=== PATIENT | female | born 1995 | race African-American/Black ===

== ENCOUNTER 2020-04-13 18:52 | Emergency (ER) | payer OTHER ==
[2020-04-13 19:18] LABS: BASOPHILS # (AUTO) 0.1 10^3/uL (0.0-0.1); BASOPHILS % (AUTO) 0.5 %; EOSINOPHILS # (AUTO) 0.5 10^3/uL (0.0-0.7); HCT - HEMATOCRIT 39.8 % (37.0-47.0); HGB - HEMOGLOBIN 12.6 g/dL (12.0-16.0); LYMPHOCYTES # (AUTO) 3.6 10^3/uL (1.5-3.5); LYMPHOCYTES % (AUTO) 38.1 %; MEAN CORPUSCULAR HGB CONC 31.7 g/dL (32.0-36.0); MEAN CORPUSCULAR VOLUME 85.4 fL (81.0-99.0); MEAN PLATELET VOLUME 9.7 fL (7.9-10.8); MONOCYTES # (AUTO) 0.6 10^3/uL (0.0-1.0); MONOCYTES % (AUTO) 6.7 %; NEUTROPHILS # (AUTO) 4.6 10^3/uL (1.5-6.6); NEUTROPHILS % (AUTO) 49.5 %; PLT - PLATELET COUNT 331 10^3/uL (130-450); RED BLOOD COUNT 4.66 10^6/uL (4.20-5.40); RED CELL DISTRIBUTION WIDTH 14.4 % (12.0-15.0); WHITE BLOOD COUNT 9.3 x10^3/uL (4.8-10.8)
[2020-04-13] MEDS ORDERED: HYDROcod/ACETAM 5/325 MG TABLET PO STA (19:24)
[2020-04-13] MEDS ORDERED: IBUPROFEN 800 MG TABLET PO STA (19:24)
--- NOTE | 2020-04-13 19:26 | ED Physician Documentation ---
PD HPI FEMALE - Stated complaint Stated Complaint: FEMALE - Chief complaint Chief Complaint: Abd Pain - History obtained from History obtained from: Patient - Additional information Additional information: She is on day 4 of her menses, the cramps and bleeding are heavier than normal. The start time was normal. She is in a monogamous relationship and does not use control. She doubts the possibility of given the normal timing of her menses. She feels a little dizzy today with the bleeding. Review of Systems Constitutional: reports: Reviewed and negative Nose: reports: Reviewed and negative Throat: reports: Reviewed and negative Cardiac: reports: Reviewed and negative PD PAST MEDICAL HISTORY - Present Medications Home Medications: Ambulatory Orders Medication Instructions Recorded Confirmed HYDROcod/ACETAM 5/325 [[place] 5/325] 1 - 2 tab PO Q6H PRN #7 tablet 04/13/20 Tranexamic Acid [Lysteda] 2 tab PO TID #20 tablet 04/13/20 - Allergies Allergies/Adverse Reactions: Allergies Allergy/AdvReac Type Severity Reaction Status Date / Time No Known Drug Allergies Allergy Verified 04/13/20 19:00 PD ED PE NORMAL - Vitals Vital signs reviewed: Yes - General General: Alert and oriented X 3, No acute distress - HEENT HEENT: PERRL, EOMI - Abdomen Abdomen: Non tender - Derm Derm: No rash - Neuro Neuro: Alert and oriented X 3, Normal speech Results - Vitals Vitals: Vital Signs - 24 hr 04/13/20 04/13/20 18:57 19:00 Temperature 36.0 C L 36.0 C L Heart Rate 73 73 Respiratory 15 15 Rate Blood Pressure 146/54 H 146/55 H O2 Saturation 100 100 Oxygen O2 Source Room air - Labs Labs: Laboratory Tests 04/13/20 04/13/20 04/13/20 19:06 19:08 19:08 WBC 9.3 RBC 4.66 Hgb 12.6 Hct 39.8 MCV 85.4 MCH 27.0 MCHC 31.7 L RDW 14.4 Plt Count 331 MPV 9.7 Neut # (Auto) 4.6 Lymph # (Auto) 3.6 H [place] # (Auto) 0.6 Eos # (Auto) 0.5 Baso # (Auto) 0.1 Absolute Nucleated RBC 0.00 Nucleated RBC % 0.0 Sodium 137 Potassium 4.0 Chloride 105 Carbon Dioxide 23 Anion Gap 9.0 BUN 12 Creatinine 0.8 Estimated GFR (MDRD) 87 L Glucose 99 Calcium 9.1 Total Bilirubin 0.7 AST 21 ALT 22 Alkaline Phosphatase 56 Total Protein 8.0 Albumin 4.2 Globulin 3.8 Albumin/Globulin Ratio 1.1 Lipase 22 Urine Color YELLOW Urine Clarity CLEAR Urine pH 8.0 H Ur Specific [place] 1.015 Urine Protein NEGATIVE Urine Glucose (UA) NEGATIVE Urine Ketones NEGATIVE Urine Occult Blood LARGE H Urine Nitrite NEGATIVE Urine Bilirubin NEGATIVE Urine Urobilinogen 0.2 (NORMAL) Ur Leukocyte Esterase NEGATIVE Ur Microscopic Review INDICATED Urine Culture Comments Not Reportable Urine HCG, Qual NEGATIVE PD MEDICAL DECISION MAKING - ED course ED course: We discussed potentially oral contraceptive pills to stanch the bleeding, she has intolerable side effects from those and declined. As such tranexamic acid 1 g orally was ordered. Notes that the way the string is built in [email or web address] I could only order it IV so told the nurse verbally to give it orally. There is no evidence of anemia or to necessitate further work-up tonight. Departure - Departure Disposition: 01 Home, Self Care Clinical Impression: Menorrhagia with regular cycle Condition: Good Record reviewed to determine appropriate education?: Yes Instructions: ED Bleeding Menstrual Heavy Prescriptions: Tranexamic Acid [Lysteda] 2 tab PO TID #20 tablet HYDROcod/ACETAM 5/325 [[place] 5/325] 1 - 2 tab PO Q6H PRN #7 tablet PRN Reason: Pain Comments: Call your doctor to arrange a follow-up appointment, make the next available appointment. In the interim, return anytime if worse or if new symptoms develop.
[2020-04-13 19:30] LABS: ALBUMIN 4.2 g/dL (3.2-5.5); ALBUMIN/GLOBULIN RATIO 1.1 (1.0-2.2); BILIRUBIN,TOTAL 0.7 mg/dL (0.2-1.0); CALCIUM 9.1 mg/dL (8.5-10.3); CREATININE 0.8 mg/dL (0.4-1.0)
[2020-04-13 19:41] LABS: BILIRUBIN,URINE NEGATIVE (NEGATIVE); GLUCOSE, URINE (UA) NEGATIVE (NEGATIVE); KETONES,URINE (UA) NEGATIVE (NEGATIVE); LEUKOCYTE ESTERASE, URINE NEGATIVE (NEGATIVE); NITRITE,URINE NEGATIVE (NEGATIVE); OCCULT BLOOD,URINE LARGE (NEGATIVE); PROTEIN,URINE NEGATIVE (NEGATIVE); UROBILINOGEN,URINE 0.2 (NORMAL) E.U./dL (NORMAL)
[2020-04-13 19:45] LABS: CLARITY,URINE CLEAR (CLEAR)
[2020-04-13 19:46] LABS: HCG UR QUAL NEGATIVE
[2020-04-13] MEDS ORDERED: TRANEXAMIC ACID 1,000 MG/10 ML VIAL IV STA (19:47)
[2020-04-13] MEDS ORDERED: HYDROcod/ACET 5/325 Prepack 4 PO STA (19:48)
[2020-04-13 19:54] LABS: BACTERIA,URINE Rare /HPF (None Seen); SQUAMOUS EPITHELIAL CELL,UR RARE Squamous (<= Few); WBC,URINE 0-3 /HPF (0-5)
[2020-04-13 20:05] VITALS: BP 135/61
== END 2020-04-13 20:05 | disposition home or self-care (01) ==
LOC: ED 18:52
DX: N92.4 Excessive bleeding in the premenopausal period (principal)
CPT/HCPCS: 36415; 80053; 81001; 81025; 83690; 85025; 99283; 99284; A9270; 81003; 87086